=== PATIENT | male | born 1975 | race Caucasian/White ===

== ENCOUNTER 2018-12-09 21:05 | Inpatient (IN) | payer MEDICARE ==
[2018-12-09 21:57] VITALS: BMI 30.7
--- NOTE | 2018-12-09 22:37 | HP ---
CIWA Score Nausea/Vomitin Muscle Tremors: 1-None Visible, but [place] Anxiety: 4-Mod. Anxious/Guarded Agitation: 4-Moderately Restless Paroxysmal Sweats: 3 Orientation: 2-Disoriented Date<2 days Tacttile Disturbances: 0-None Auditory Disturbances: 0-None Visual Disturbances: 0-None Headache: 0-None Present CIWA-Ar Total Score: 17 - Admission Criteria OAS Guidelines: Admission for Medically Managed Detox: Requires at least one of the followin. CIWA greater than 12 2. Seizures within the past 24 hours 3. Delirium tremens within the past 24 hours 4. Hallucinations within the past 24 hours 5. Acute intervention needed for co occurring medical disorder 6. Acute intervention needed for co occurring psychiatric disorder 7. Severe withdrawal that cannot be handled at a lower level of care (continued vomiting, continued diarrhea, abnormal vital signs) requiring intravenous medication and/or fluids 8. Patient presents the following: CIWA greater than 12 Admission Criteria Met: Admission criteria met Admission ROS [facility] - [facility] Chief Complaint: SEEKING DETOX FOR C/O WITHDRAWAL SX'S Allergies/Adverse Reactions: Allergies Allergy/AdvReac Type Severity Reaction Status Date / Time No Known Allergies Allergy Verified 12/09/18 21:49 History of Present Illness: 43 Y.O. MALE WITH HX/O ALCOHOLISM HERE FOR DETOX. CLIENT WAS REFERRED BY [facility] AFTER PRESENTING THERE FOR DETOX. CLIENT PRESENTS WITH SOME C/O WITHDRAWAL SX'S. CIWA 17. REPORTS CONTINUOUSLY DRINKING TO AVOID WITHDRAWAL SX'S. HE ALSO REPORTS THIS IS HIS FIRST ATTEMPT AT INPATIENT DETOX. DENIES ANY SIGNIFICANT CLEAN TIME. DENIES HX/O SEIZURE, BLACKOUT, AVH/ SI/HI. Exam Limitations: No Limitations - Ebola screening Have you traveled outside of the country in the last 21 days: No (N) Have you had contact with anyone from an Ebola affected area: No Do you have a fever: No - Review of Systems Constitutional: Loss of Appetite, Night Sweats, Changes in sleep EENT: reports: No Symptoms Reported Respiratory: reports: No Symptoms reported Cardiac: reports: No Symptoms Reported GI: reports: Poor Appetite, Poor Fluid Intake, Abdominal cramping, Other ( HICCUPS) : reports: No Symptoms Reported Musculoskeletal: reports: Joint Pain (CHRONIC) Integumentary: reports: Flushing Neuro: reports: No Symptoms reported Endocrine: reports: No Symptoms Reported Hematology: reports: No Symptoms Reported Psychiatric: reports: Orientated x3, Anxious Other Systems: Reviewed and Negative Patient History - Patient Medical History Hx Anemia: No Hx Asthma: No Hx Chronic Obstructive Pulmonary Disease (COPD): No Hx Cancer: No Hx Cardiac Disorders: No Hx Congestive Heart Failure: No Hx Hypertension: No Hx Hypercholesterolemia: No Hx Pacemaker: No HX Cerebrovascular Accident: No Hx Seizures: No Hx Dementia: No Hx Diabetes: No Hx Gastrointestinal Disorders: No Hx Liver Disease: No Hx Genitourinary Disorders: No Hx Sexually Transmitted Disorders: No Hx Renal Disease (ESRD): No Hx Thyroid Disease: No Hx Human Immunodeficiency Virus (HIV): No Hx Hepatitis C: No Hx Depression: No Hx Suicide Attempt: No Hx Bipolar Disorder: No Hx Schizophrenia: No Other Medical History: DENIES - Patient Surgical History Past Surgical History: No - PPD History Previous Implant?: No PPD to be Administered?: Yes - Smoking Cessation Smoking history: Former smoker Have you smoked in the past 12 months: No Initiated information on smoking cessation: No - Substance & Tx. History Hx Alcohol Use: Yes Hx Substance Use: Yes Substance Use Type: Alcohol Hx Substance Use Treatment: No - Substances abused Alcohol Substance route: Oral Frequency: Daily Amount used: 6-9 beers Age of first use: 15 Date of last use: 12/09/18 Family Disease History - Family Disease History Family Disease History: Other: Father (RECOVERING ALCOHOLIC) Admission Physical Exam [facility] - Vital Signs Vital Signs: Vital Signs - 24 hr 12/09/18 12/09/18 21:45 22:05 Temperature 97.6 F 97.6 F Pulse Rate 168 H 168 H Respiratory 18 18 Rate Blood Pressure 148/85 148/85 - Physical General Appearance: Yes: Mild Distress, Alcohol on Breath, Tremorous, Anxious HEENTM: Yes: EOMI, Normocephalic, Normal Voice, ANDREW, Pharynx Normal Respiratory: Yes: Chest Non-Tender, Lungs Clear, Normal Breath Sounds, No Respiratory Distress, No Accessory Muscle Use Neck: Yes: No masses,lesions,Nodules, Supple, Trachea in good position Breast: Yes: Breast Exam Deferred Cardiology: Yes: Regular Rhythm, S1, S2, Tachycardia Abdominal: Yes: Non Tender, Soft, Increased Bowel Sounds Genitourinary: Yes: Within Normal Limits Back: Yes: Normal Inspection Musculoskeletal: Yes: full range of Motion, Gait Steady Extremities: Yes: Normal Capillary Refill, Normal Range of Motion, Non-Tender, Tremors (FELT) Neurological: Yes: Fully Oriented, Alert, Motor Strength 5/5 Integumentary: Yes: Dry, Warm, Other (FLUSHED) Lymphatic: Yes: Within Normal Limits - Diagnostic (1) Alcohol dependence with uncomplicated withdrawal Current Visit: Yes Status: Acute (2) At risk for dehydration Current Visit: Yes Status: Acute Cleared for Admission [facility] - Detox or Rehab [facility] Level of Care: Medically Managed Detox Regimen/Protocol: Librium Claeared for Rehab Admission: No Breathalyzer - Breathalyzer Breathalyzer: 0.269 Urine Drug Screen - Test Device Lot number: [id number] Expiration date: 08/05/20 - Control Is test valid?: Yes - Results Drug screen NEGATIVE: Yes Inpatient Rehab Admission - Rehab Decision to Admit Inpatient rehab admission?: No
[2018-12-09] MEDS ORDERED: METHOCARBAMOL 500 MG TABLET PO PRN (22:45)
[2018-12-09] MEDS ORDERED: IBUPROFEN 400 MG TABLET (FP) PO PRN (22:45)
[2018-12-09] MEDS ORDERED: P-EPHED 60MG/TRIPROLIDI 2.5MG TABLET PO PRN (22:45)
[2018-12-09] MEDS ORDERED: MAG HYDROX/AL HYDROX/SIMETH 30 ML UNIT-DOSE CUP PO PRN (22:45)
[2018-12-09] MEDS ORDERED: MAGNESIUM HYDROX 2400MG/30ML ORAL SUSPENSION 30 ML CUP PO PRN (22:45)
[2018-12-09] MEDS ORDERED: BISMUTH SUBSALICYLATE 524 MG/30 ML UD PO PRN (22:45)
[2018-12-09] MEDS ORDERED: guaiFENesin 200 MG/10 ML 10 ML UNIT-DOSE CUPS PO PRN (22:45)
[2018-12-09] MEDS ORDERED: ONDANSETRON *ODT* 4 MG TABLET SL PRN (22:45)
[2018-12-09] MEDS ORDERED: DICYCLOMINE HCL 10 MG CAPSULE PO PRN (22:45)
[2018-12-09] MEDS ORDERED: hydrOXYzine PAMOATE 25 MG CAPSULE (FP) PO PRN (22:45)
[2018-12-09] MEDS ORDERED: ACETAMINOPHEN 325 MG TABLET (FP) PO PRN ×2 (22:45)
[2018-12-09] MEDS ORDERED: MAGNESIUM CITRATE 300 ML BOTTLE PO PRN (22:45)
[2018-12-09] MEDS ORDERED: MENTHOL/PHENOL 1 EACH UD MM PRN (22:45)
[2018-12-09] MEDS: chlordiazePOXIDE HCL 25 MG CAPSULE PO SCH (23:56)
[2018-12-10] MEDS: chlordiazePOXIDE HCL 25 MG CAPSULE PO SCH ×2 (05:14→14:55)
[2018-12-10] MEDS: PRENATAL VITAMINS W/ FOLIC ACID TABLET (FP) PO SCH (10:10)
[2018-12-10] MEDS: chlordiazePOXIDE HCL 10 MG CAPSULE PO PRN (10:12)
[2018-12-10 10:13] LABS: HEMATOCRIT 44.3 % (35.4-49); MCHC 33.8 g/dl (32.0-35.9); MEAN CELL VOLUME 94.7 fl (80-96); MEAN PLT VOLUME 7.6 fl (7.5-11.1); PLATELET COUNT 245 K/MM3 (134-434); RBC 4.68 M/mm3 (4.00-5.60); RDW 14.1 % (11.9-15.9); WHITE BLOOD COUNT 4.3 K/mm3 (4.0-10.0)
[2018-12-10 10:14] LABS: ALBUMIN 3.9 g/dl (3.4-5.0); ALK PHOS 50 U/L (45-117); ANION GAP 9 MMOL/L (8-16); BILIRUBIN,TOTAL 0.6 mg/dL (0.2-1); BLOOD UREA NITROGEN 14 mg/dL (7-18); CALCIUM 8.9 mg/dL (8.5-10.1); CHLORIDE 103 mmol/L (98-107); CO2 26 mmol/L (21-32); CREATININE 0.7 mg/dL (0.55-1.3); GLUCOSE,RANDOM 82 mg/dL (74-106); POTASSIUM 3.5 mmol/L (3.5-5.1); SGOT/AST 76 U/L (15-37); SGPT/ALT 90 U/L (13-61); SODIUM 138 mmol/L (136-145); TOT PROT 7.4 g/dl (6.4-8.2)
--- NOTE | 2018-12-10 11:39 | EKG ---
Test Reason : Blood Pressure : / mmHG Vent. Rate : 087 BPM Atrial Rate : 087 BPM P-R Int : 148 ms QRS Dur : 110 ms QT Int : 358 ms P-R-T Axes : 045 -03 020 degrees QTc Int : 430 ms NORMAL SINUS RHYTHM NORMAL ECG NO PREVIOUS ECGS AVAILABLE Confirmed by PRASAD LAUGHLIN MD ([id number]) on 12/10/2018 11:39:01 AM Referred By: Confirmed By:PRASAD LAUGHLIN MD
--- NOTE | 2018-12-10 17:45 | PN ---
S CIWA - CIWA Score Nausea/Vomitin-Mild Nausea/No Vomiting Muscle Tremors: 4-Moderate,w/Arms Extend Anxiety: 2 Agitation: 1-Slight > Activity Paroxysmal Sweats: 3 Orientation: 0-Oriented Tacttile Disturbances: 0-None Auditory Disturbances: 0-None Visual Disturbances: 0-None Headache: 0-None Present CIWA-Ar Total Score: 11 BHS Progress Note (SOAP) Subjective: sweats nausea tremors Objective: 12/10/18 17:42 in bed A & Ox 3 tremulous skin flushed Vital Signs Temperature 98.2 F 12/10/18 17:34 Pulse Rate 97 H 12/10/18 17:34 Respiratory Rate 18 12/10/18 17:34 Blood Pressure 142/86 12/10/18 17:34 O2 Sat by Pulse Oximetry (%) Laboratory Last Values WBC 4.3 K/mm3 (4.0-10.0) 12/10/18 07:45 RBC 4.68 M/mm3 (4.00-5.60) 12/10/18 07:45 Hgb 15.0 GM/dL (11.7-16.9) 12/10/18 07:45 Hct 44.3 % (35.4-49) 12/10/18 07:45 MCV 94.7 fl (80-96) 12/10/18 07:45 MCH 32.0 pg (25.7-33.7) 12/10/18 07:45 MCHC 33.8 g/dl (32.0-35.9) 12/10/18 07:45 RDW 14.1 % (11.9-15.9) 12/10/18 07:45 Plt Count 245 K/MM3 (134-434) 12/10/18 07:45 MPV 7.6 fl (7.5-11.1) 12/10/18 07:45 Sodium 138 mmol/L (136-145) 12/10/18 07:45 Potassium 3.5 mmol/L (3.5-5.1) 12/10/18 07:45 Chloride 103 mmol/L (98-107) 12/10/18 07:45 Carbon Dioxide 26 mmol/L (21-32) 12/10/18 07:45 Anion Gap 9 MMOL/L (8-16) 12/10/18 07:45 BUN 14 mg/dL (7-18) 12/10/18 07:45 Creatinine 0.7 mg/dL (0.55-1.3) 12/10/18 07:45 Creat Clearance w eGFR 124.28 (>60) 12/10/18 07:45 Random Glucose 82 mg/dL (74-106) 12/10/18 07:45 Calcium 8.9 mg/dL (8.5-10.1) 12/10/18 07:45 Total Bilirubin 0.6 mg/dL (0.2-1) 12/10/18 07:45 AST 76 U/L (15-37) H 12/10/18 07:45 ALT 90 U/L (13-61) H 12/10/18 07:45 Alkaline Phosphatase 50 U/L (45-117) 12/10/18 07:45 Total Protein 7.4 g/dl (6.4-8.2) 12/10/18 07:45 Albumin 3.9 g/dl (3.4-5.0) 12/10/18 07:45 RPR Titer Nonreactive (NONREACTIVE) 12/10/18 07:45 HIV 1&2 Antibody Screen Negative 12/10/18 07:45 HIV P24 Antigen Negative 12/10/18 07:45 labs noted Assessment: 12/10/18 17:44 withdrawal sx Plan: continue detox
[2018-12-10] MEDS: chlordiazePOXIDE 5 MG CAPSULE PO SCH (22:00)
[2018-12-10] MEDS: THIAMINE HCL 100 MG TABLET (FP) PO SCH (22:25)
[2018-12-10] MEDS: MELATONIN 5 MG TABLETS PO PRN (22:25)
[2018-12-11] MEDS: chlordiazePOXIDE 5 MG CAPSULE PO SCH ×2 (06:00→12:59)
[2018-12-11] MEDS: PRENATAL VITAMINS W/ FOLIC ACID TABLET (FP) PO SCH (10:01)
[2018-12-11] MEDS: chlordiazePOXIDE HCL 10 MG CAPSULE PO PRN (10:02)
--- NOTE | 2018-12-11 16:30 | PN ---
S CIWA - CIWA Score Nausea/Vomitin-Mild Nausea/No Vomiting Muscle Tremors: 3 Anxiety: 3 Agitation: 3 Paroxysmal Sweats: 3 Orientation: 0-Oriented Tacttile Disturbances: 0-None Auditory Disturbances: 0-None Visual Disturbances: 0-None Headache: 0-None Present CIWA-Ar Total Score: 13 BHS Progress Note (SOAP) Subjective: Sweating, tremor Objective: 12/11/18 16:29 Last Vital Signs Temp Pulse Resp BP Pulse Ox 98.1 F 108 H 18 121/90 12/11/18 15:46 12/11/18 15:46 12/11/18 15:46 12/11/18 15:46 Laboratory Tests 12/10/18 12/10/18 12/10/18 07:45 07:45 07:45 WBC 4.3 RBC 4.68 Hgb 15.0 Hct 44.3 MCV 94.7 MCH 32.0 MCHC 33.8 RDW 14.1 Plt Count 245 MPV 7.6 Sodium 138 Potassium 3.5 Chloride 103 Carbon Dioxide 26 Anion Gap 9 BUN 14 Creatinine 0.7 Creat Clearance w eGFR 124.28 Random Glucose 82 Calcium 8.9 Total Bilirubin 0.6 AST 76 H ALT 90 H Alkaline Phosphatase 50 Total Protein 7.4 Albumin 3.9 RPR Titer Nonreactive HIV 1&2 Antibody Screen HIV P24 Antigen 12/10/18 07:45 WBC RBC Hgb Hct MCV MCH MCHC RDW Plt Count MPV Sodium Potassium Chloride Carbon Dioxide Anion Gap BUN Creatinine Creat Clearance w eGFR Random Glucose Calcium Total Bilirubin AST ALT Alkaline Phosphatase Total Protein Albumin RPR Titer HIV 1&2 Antibody Screen Negative HIV P24 Antigen Negative Labs reviewed Assessment: 12/11/18 16:29 Withdrawal symptoms Plan: Continue detox Encouraged PO water hydration
[2018-12-11] MEDS ORDERED: chlordiazePOXIDE HCL 10 MG CAPSULE PO PRN (21:00)
[2018-12-11] MEDS: THIAMINE HCL 100 MG TABLET (FP) PO SCH (22:58)
[2018-12-11] MEDS: MELATONIN 5 MG TABLETS PO PRN (22:59)
[2018-12-11] MEDS: chlordiazePOXIDE HCL 10 MG CAPSULE PO SCH (22:59)
[2018-12-12] MEDS: chlordiazePOXIDE HCL 10 MG CAPSULE PO SCH (05:12)
[2018-12-12 09:28] VITALS: BP 132/75; PULSE 86; TEMP 97.7
[2018-12-12] MEDS: PRENATAL VITAMINS W/ FOLIC ACID TABLET (FP) PO SCH (09:56)
--- NOTE | 2018-12-12 10:52 | PN ---
[facility] Progress Note Note: pt states he feeling fine, no s/s of withdrawals noted. d/c today
--- NOTE | 2018-12-12 10:52 | DS ---
[facility] Detox Discharge Summary Admission Date: 12/09/18 Discharge Date: 12/12/18 - History Present History: Alcohol Dependence - Physical Exam Results Vital Signs: Vital Signs Temperature 97.7 F 12/12/18 09:28 Pulse Rate 86 12/12/18 09:28 Respiratory Rate 18 12/12/18 09:28 Blood Pressure 132/75 12/12/18 09:28 O2 Sat by Pulse Oximetry (%) - Treatment Hospital Course: Detox Protocol Followed, Detoxed Safely, Responded well, Discharged Condition Good, Rehab Referral Accepted - Medication Discharge Medications: Ambulatory Orders NK [No Known Home Medication] 12/09/18 - Diagnosis (1) Alcohol dependence with uncomplicated withdrawal Current Visit: Yes Status: Acute (2) At risk for dehydration Current Visit: Yes Status: Acute - AMA Did Patient Leave Against Medical Advice: No (going home)
== END 2018-12-12 11:15 | disposition home or self-care (01) | DRG 775 ==
LOC: YASAS 21:05 → Y6N 23:00
PROVIDERS: ADMIT Surgery; ATTEND Surgery
PROC: HZ2ZZZZ Detoxification Services for Substance Abuse Treatment (ICD-10-PCS; principal; 2018-12-09)
DX: F10.230 Alcohol dependence with withdrawal, uncomplicated (principal); R63.8 Other symptoms and signs concerning food and fluid intake; R00.0 Tachycardia, unspecified; Z87.891 Personal history of nicotine dependence
CPT/HCPCS: 36415; 80053; 85027; 86593; 87389; 93005; 93010; Q0162